=== PATIENT | female | born 1980 | race Caucasian/White ===

== ENCOUNTER 2020-01-17 04:29 | Inpatient (IN) ==
[2020-01-17] MEDS ORDERED: LACTATED RINGERS 1,000 ML IV PRN (05:20)
[2020-01-17] MEDS ORDERED: BUTORPHANOL 2 MG/ML VIAL IV PRN (05:20)
[2020-01-17] MEDS ORDERED: AMPICILLIN INJ 2,000 MG in SODIUM CHLORIDE 0.9% 100 ML IV ONE (05:22)
[2020-01-17 05:55] LABS: Basophils % 0.4 % (0.0-0.8); Eosinophils # 0.4 10*3/uL (0.0-0.87); Eosinophils % 3.9 % (0.00-10.9); Hematocrit 27.1 VOL% (35.7-47.0); Hemoglobin 9.2 GM/DL (12.0-16.0); Immature Granulocytes % 0.4 %; Immature Granulocytes Absolute 0.04 #; Lymphocytes # 1.9 10*3/uL (1.4-4.0); Lymphocytes % 21.1 % (21.3-54.2); Mean Corpuscular HGB Conc 33.9 GM/DL (32-36); Mean Corpuscular Volume 107.5 FL (87-102); Mean Platelet Volume 10.6 FL (9.6-12.0); Monocytes % 6.5 % (1.7-12.7); Neutrophils % 67.7 % (38.7-73.9); Platelet Count 202 T/CUMM (130-400); Red Blood Count 2.52 MC/CUMM (3.8-5.5); Red Cell Distribution Width 17.2 % (9.3-17.3); White Blood Count 9.1 T/CUMM (4-12)
[2020-01-17] MEDS: LACTATED RINGERS 1,000 ML IV SCH ×2 (06:01→18:54)
[2020-01-17 06:17] LABS: Albumin 2.9 G/DL (3.4-5.0); Bilirubin,Total 0.4 MG/DL (0.2-1.0); Calcium 8.7 MG/DL (8.5-10.1); Osmolality,Calculated 271.7 MOS/KG (273-304); Total Protein 6.4 G/DL (6.4-8.3)
[2020-01-17] MEDS ORDERED: ceFAZolin 2,000 MG in PREMIX 1 EACH IV ONE (07:22)
[2020-01-17] MEDS ORDERED: CITRIC ACID/SODIUM CITRATE 30 ML UDCUP PO ONE (07:23)
[2020-01-17] MEDS ORDERED: FAMOTIDINE 20 MG/2 ML VIAL IV ONE (07:23)
[2020-01-17] MEDS ORDERED: OXYTOCIN/LR 20 UNIT/1,000 ML BAG IV ONE ×3 (07:25→09:06)
[2020-01-17] MEDS ORDERED: MORPHINE 10 MG/10 ML VIAL ONE (07:47)
[2020-01-17] MEDS ORDERED: fentaNYL 100 MCG/2 ML VIAL ONE (07:47)
[2020-01-17] MEDS ORDERED: BUPIVACAINE SPINAL 0.75% 2 ML AMP SPINAL ONE (07:47)
[2020-01-17] MEDS ORDERED: CARBOPROST TROMETHAMINE 250 MCG/ML AMP IM ONE (07:49)
[2020-01-17] MEDS ORDERED: TRANEXAMIC ACID 1,000 MG/10 ML VIAL ONE (07:49)
[2020-01-17] MEDS ORDERED: METHYLERGONOVINE 0.2 MG/1 ML AMP ONE (07:49)
[2020-01-17] MEDS ORDERED: miSOPROStoL 200 MCG TABLET ONE (07:49)
[2020-01-17] MEDS ORDERED: LACTATED RINGERS 1,000 ML IV ONE (08:13)
[2020-01-17] MEDS ORDERED: propofoL 200 MG/20 ML VIAL IV ONE ×2 (08:21→08:42)
[2020-01-17] MEDS ORDERED: MIDAZOLAM 2 MG/2 ML VIAL ONE ×3 (08:27→09:07)
[2020-01-17] MEDS ORDERED: KETAMINE 500 MG/10 ML VIAL ONE (08:29)
[2020-01-17] MEDS ORDERED: ONDANSETRON 4 MG/2 ML VIAL ONE (08:33)
[2020-01-17 08:45] LABS: Cord Arterial Blood HCO3 18.1 MMOL/L; Cord Venous Blood HCO3 20.6 MMOL/L; Cord Venous Blood PCO2 36.6 MMHG; Cord Venous Blood PO2 24.4 MMHG
[2020-01-17 08:48] LABS: Bilirubin,Urine Negative (Negative); Blood, Urine Negative (Negative); Glucose,Urine (UA) Negative (Negative); Ketones,Urine Negative (Negative); Mucus,Urine Occasional /LPF (Occasional); Nitrite,Urine Negative (Negative); Protein,Urine Negative; RBC,Urine <1 /HPF (0-4); Urine Appearance CLEAR (Clear); Urine Color Yellow (Yellow); Urine Specific Gravity 1.015 (1.001-1.035); Urine Urobilinogen < 2.0 EU/DL (0.2-1.0)
[2020-01-17] MEDS ORDERED: ACETAMINOPHEN 1,000 MG/100 ML VIAL IV ONE (08:54)
[2020-01-17] MEDS ORDERED: DEXAMETHASONE 4 MG/1 ML VIAL ONE (08:57)
[2020-01-17] MEDS ORDERED: BUPIVACAINE MPF 0.25% 30 ML VIAL ONE (09:00)
[2020-01-17] MEDS ORDERED: BENZOCAINE 20%/MENTHOL 0.5% SPRAY 56 GM CAN TOP PRN (09:06)
[2020-01-17] MEDS ORDERED: MEASLES/MUMPS/RUBELLA VACCINE 0.5 ML VIAL SUBCUT ONE (09:06)
[2020-01-17] MEDS ORDERED: oxyCODONE/ACETAMINOPHEN 5-325 MG TABLET PO PRN ×2 (09:06)
[2020-01-17] MEDS ORDERED: DIPH/TET/ACEL PERT BOOSTER VACCINE 0.5 ML VIAL IM ONE (09:06)
[2020-01-17] MEDS ORDERED: WITCH HAZEL PADS 100/JAR TOP PRN (09:06)
[2020-01-17] MEDS ORDERED: ONDANSETRON 4 MG/2 ML VIAL IV PRN (09:06)
[2020-01-17] MEDS ORDERED: LANOLIN 50% CREAM 0.3 OZ TUBE TOP PRN (09:06)
[2020-01-17] MEDS ORDERED: HYDROCORTISONE 2.5% RECTAL CREAM 30 GM TUBE TOP PRN (09:06)
[2020-01-17] MEDS ORDERED: RHO(D) IMMUNE GLOBULIN 300 MCG SYRINGE IM ONE (09:06)
[2020-01-17] MEDS ORDERED: IBUPROFEN 800 MG TABLET PO PRN (09:06)
[2020-01-17] MEDS ORDERED: BISACODYL 10 MG SUPP RECTAL PRN (09:06)
[2020-01-17] MEDS ORDERED: ACETAMINOPHEN 325 MG TABLET PO PRN (09:06)
[2020-01-17] MEDS ORDERED: AMPICILLIN INJ 1,000 MG in SODIUM CHLORIDE 0.9% 100 ML IV SCH (09:30)
[2020-01-17] MEDS: KETOROLAC 30 MG/1 ML VIAL IV SCH ×3 (09:58→22:07)
[2020-01-17] MEDS: ONDANSETRON 4 MG/2 ML VIAL IV PRN (16:46)
[2020-01-17] MEDS: ceFAZolin 1,000 MG in SYRINGE 1 EACH IV SCH ×2 (16:47→23:49)
[2020-01-17] MEDS ORDERED: ACETAMINOPHEN 500 MG TABLET PO SCH (17:00)
[2020-01-17] MEDS: DOCUSATE SODIUM 100 MG CAPSULE PO SCH (21:50)
[2020-01-18] MEDS: ACETAMINOPHEN 500 MG TABLET PO SCH ×3 (02:12→17:58)
[2020-01-18] MEDS: KETOROLAC 30 MG/1 ML VIAL IV SCH (04:52)
[2020-01-18 05:52] LABS: Basophils % 0.2 % (0.0-0.8); Eosinophils # 0.1 10*3/uL (0.0-0.87); Eosinophils % 1.5 % (0.00-10.9); Hematocrit 21.2 VOL% (35.7-47.0); Immature Granulocytes % 0.6 %; Immature Granulocytes Absolute 0.05 #; Lymphocytes # 1.8 10*3/uL (1.4-4.0); Lymphocytes % 20.4 % (21.3-54.2); Mean Corpuscular Volume 110.4 FL (87-102); Mean Platelet Volume 10.9 FL (9.6-12.0); Monocytes % 7.2 % (1.7-12.7); Neutrophils % 70.1 % (38.7-73.9); Red Cell Distribution Width 17.4 % (9.3-17.3); White Blood Count 8.8 T/CUMM (4-12)
[2020-01-18 06:01] LABS: Red Blood Count 1.92 MC/CUMM (3.8-5.5)
[2020-01-18 06:02] LABS: Platelet Count 152 T/CUMM (130-400)
[2020-01-18 06:16] LABS: Hypochromasia 2+; Microcytosis 1+; Platelet Estimate Adequate
[2020-01-18] MEDS: ONDANSETRON 4 MG/2 ML VIAL IV PRN (06:23)
[2020-01-18] MEDS: DOCUSATE SODIUM 100 MG CAPSULE PO SCH ×2 (08:25→21:23)
[2020-01-18] MEDS ORDERED: IRON (CARBONYL)/VIT C/B12/FA TABLET PO SCH (09:00)
[2020-01-18] MEDS ORDERED: SIMETHICONE CHEW 80 MG TABLET PO PRN (14:46)
[2020-01-18] MEDS: MAGNESIUM HYDROXIDE SUSP 30 ML UDCUP PO PRN (17:59)
[2020-01-18] MEDS ORDERED: KETOROLAC 30 MG/1 ML VIAL IM ONE (18:15)
[2020-01-19] MEDS: KETOROLAC 10 MG TABLET PO SCH ×3 (00:17→13:08)
[2020-01-19] MEDS: ACETAMINOPHEN 500 MG TABLET PO SCH ×2 (03:16→10:58)
[2020-01-19] MEDS: OXYTOCIN/LR 20 UNIT/1,000 ML BAG IV SCH (05:12)
[2020-01-19] MEDS: MAGNESIUM HYDROXIDE SUSP 30 ML UDCUP PO PRN (09:07)
[2020-01-19] MEDS: DOCUSATE SODIUM 100 MG CAPSULE PO SCH (09:07)
[2020-01-19 11:30] VITALS: BP 121/69
[2020-01-19] MEDS ORDERED: MAGNESIUM CITRATE 300 ML BOTTLE PO ONE (12:33)
[2020-01-19] MEDS ORDERED: INFLUENZA VIRUS VACCINE 0.5 ML SYRINGE IM ONE (15:36)
== END 2020-01-19 16:20 | disposition home or self-care (01) | DRG 787 ==
LOC: N.LDOUT 04:29 → N.LD 04:30 → N.OB 12:30
PROVIDERS: ADMIT Specialist; ATTEND Specialist
PROC: LDCSECT (ICD-10-PCS; 2020-01-17 08:00)